=== PATIENT | female | born 1945 | race Hispanic/Latino ===

== ENCOUNTER → 2025-07-15 | Outpatient (CLI) | payer OTHER, MEDICARE ==
--- NOTE | 2025-07-15 14:00 | NUR ---
MBSS COMPLETED (OUTPATIENT). Deep non-transient penetration after the swallow with pureed, pudding, moderately thick and thin liquids with inconsistent cough response (not effective in clearing penetrations). Unable to determine if deep penetrations resulted in aspiration due to ARTIFACT OF THE SHOULDER blocking view below vocal cords. RECOMMEND: NPO, fdc alternate means of nutrition/hydration. DIAGNOSTIC FINDINGS: Pt presented with moderate oral and severe pharyngeal dysphagia second to Parkinson's Disease. Dysphagia characterized by decreased oral motor strength, ROM, and coordination; decreased tongue base retraction; decreased hyo-laryngeal elevation/excursion; decreased pressure generation within the pharynx; and impaired epiglottic inversion. These characteristics were evidenced by bolus loss in oral cavity with residue; decreased A-P bolus propulsion; residue on base of tongue, valleculae, pyriform sinuses and posterior pharyngeal wall unable to clear with extra dry swallows; resulting in deep non-transient penetration after the swallow with pureed, pudding, moderately thick and thin liquids with inconsistent cough response (not effective in clearing penetrations). Unable to determine if deep penetrations resulted in aspiration due to ARTIFACT OF THE SHOULDER blocking view below vocal cords. NOTE: Pt noted with breathy vocal quality during exam. As per patient, this started about 2 weeks ago. As this may be associated to Parkinson's Disease, ENT may need to rule out other etiologies affecting vocal quality prior to having speech therapy evaluate vocal quality. Pt/family will seek ENT consult to address voice issue. BEHAVIORAL SCIENCES DEPARTMENT CHAIR reviewed results and recommendations with patient/family. BEHAVIORAL SCIENCES DEPARTMENT CHAIR educated patient on risks and consequences of aspiration. Speech therapy warranted at this time to address oropharyngeal dysphagia. Prognosis guarded due to Parkinson's being a progressive disease. All questions answered. Addendum: 07/15/[address] [facility] CABRAL Amended: Links added.
--- NOTE | 2025-07-16 16:36 | HMCIMG ---
MODIFIED BARIUM SWALLOW W CINE REASON: Dysphagia, unspecified; Other feeding difficulties FINDINGS: Fluoroscopic assistance was provided to the speech pathologist while performing examination. For findings and dietary recommendations, refer to speech pathologist's report. FLUORO TIME: 2.5 minutes IMPRESSION: Modified barium swallow as described.
== END | disposition home or self-care (01) ==
LOC: RAH 13:10
PROVIDERS: ATTEND Internal Medicine Gastroenterology
DX: R13.10 Dysphagia, unspecified (principal); R63.39 Other feeding difficulties
CPT/HCPCS: 74230; 92611